=== PATIENT | male | born 1980 ===

== ENCOUNTER 2020-11-26 06:19 | Day surgery (SDC) | payer OTHER ==
--- NOTE | 2020-11-26 08:07 | Anesthesia Consultation ---
Anesthesia Consult and Med Hx Date of service: 11/26/20 - Airway Anesthetic Teeth Evaluation: Good ROM Head & Neck: Adequate Mental/Hyoid Distance: Adequate Mallampati Class: Class II Intubation Access Assessment: Probably Good - Pre-Operative Health Status ASA Pre-Surgery Classification: ASA2 Proposed Anesthetic Plan: MAC - Pulmonary Hx Smoking: Yes (<1/4-1/2 PPD) Hx Respiratory Symptoms: No - Cardiovascular System Hx Hypertension: No Hx Heart Attack/AMI: No Hx Percutaneous Transluminal Coronary Angioplasty (PTCA): No - Central Nervous System CVA: No - Endocrine Hx Renal Disease: No Hx Liver Disease: No Hx Insulin Dependent Diabetes: No Hx Non-Insulin Dependent Diabetes: No Hx Thyroid Disease: No - Additional Comments Anesthesia Medical History Comments: PMH SLE, not currently on steroids. No hx anesthetic complications.
--- NOTE | 2020-11-26 08:07 | Anesthesia Day of Surgery ---
Anesthesia Day of Surgery - Day of Surgery Patient Examined: Yes Patient H&P Reviewed: Yes Patient is NPO: Yes
[2020-11-26] MEDS ORDERED: SODIUM CHLORIDE 0.9% 1000 ML 1,000 ML IV SCH (08:30)
[2020-11-26] MEDS ORDERED: LIDOCAINE MPF (2%) 20 MG/1 ML VIAL 5 ML ONE (09:36)
[2020-11-26] MEDS ORDERED: propofoL 200 MG/20 ML VIAL IV ONE ×2 (09:36→09:54)
[2020-11-26] MEDS ORDERED: ONDANSETRON 4 MG/2 ML INJ ONE (09:36)
[2020-11-26] MEDS ORDERED: SODIUM CHLORIDE 0.9% 1000 ML 1,000 ML ONE (10:26)
--- NOTE | 2020-11-26 11:29 | Procedure Note ---
Date of procedure: 11/26/20 Pre-op diagnosis: H/o perforated cecal diverticulitis Post-op diagnosis: same Procedure: Colonoscopy to cecum Description of procedure: Pt was placed left side down. MAC anesthesia was administered. Colonoscope was introduced into the pt's rectum and the scope advanced to the cecum without difficulty. Prep was adequate. Several cecal diverticula were noted. Scope was slowly withdrawn with careful circumferential visualization of the colonic mucosa including a retroflexed view of the distal rectum. No additional pathologic findings were noted. Insufflated air was aspirated. Scope was withdrawn. Pt tolerated the procedure well.
--- NOTE | 2020-11-26 13:00 | Post Anesthesia Evaluation ---
- Post Anesthesia Evaluation Patient Participated: Yes Airway Patent: Yes Stable Respiratory Function: Yes Nausea/Vomiting: No Temp > 96.8F: Yes Pain Manageable: Yes Adequeate Hydration: Yes Anesthesia Complications: No
[2020-11-26] MEDS ORDERED: WATER FOR IRRIG STERILE 250 ML BOTTLE IR ONE (13:48)
[2020-11-26 13:53] VITALS: BP 113/70
== END 2020-11-26 06:20 | disposition home or self-care (01) ==
LOC: GIO 06:19 → EEVIPCON 06:19 → GIO 06:20
PROVIDERS: ATTEND Surgery
DX: K57.32 Diverticulitis of large intestine without perforation or abscess without bleeding (principal); K57.30 Diverticulosis of large intestine without perforation or abscess without bleeding; F17.210 Nicotine dependence, cigarettes, uncomplicated
CPT/HCPCS: 45378; J2405; J2704; J7030